=== PATIENT | female | born 1990 | race Caucasian/White ===

== ENCOUNTER 2016-08-28 16:46 | Emergency (ER) | payer OTHER ==
[2016-08-28 16:57] VITALS: BP 124/81
--- NOTE | 2016-08-28 17:02 | ER Document Report ---
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 She's had chronic right wrist pain [place] scheduled for an MRI of the wrist the end of the month. She is here because she can't tolerate the pain. Tender over the ulnar styloid. TRAVEL OUTSIDE OF THE [place] IN LAST 30 DAYS: No - Related Data Allergies/Adverse Reactions: No Known Allergies Allergy (Verified 03/23/16 11:46) Past Medical History - Past Medical History Cardiac Medical History: Denies: Hx Coronary Artery Disease, Hx Heart Attack, Hx Hypertension Pulmonary Medical History: Denies: Hx Asthma, Hx Bronchitis, Hx COPD, Hx Pneumonia Neurological Medical History: Denies: Hx Cerebrovascular Accident, Hx Seizures GI Medical History: Denies: Hx Hepatitis, Hx Hiatal Hernia, Hx Ulcer Musculoskeltal Medical History: Denies Hx Arthritis Infectious Medical History: Denies: Hx Hepatitis Past Surgical History: Denies: Hx Mastectomy, Hx Open Heart Surgery, Hx Pacemaker - Immunizations Hx Diphtheria, Pertussis, Tetanus Vaccination: Yes Physical Exam - Vital signs Vitals: Temp Pulse Resp BP Pulse Ox 98.0 F 75 16 124/81 100 08/28/16 16:56 08/28/16 16:56 08/28/16 16:56 08/28/16 16:56 08/28/16 16:56 Course - Vital Signs Vital signs: Temp Pulse Resp BP Pulse Ox 98.0 F 75 16 124/81 100 08/28/16 16:56 08/28/16 16:56 08/28/16 16:56 08/28/16 16:56 08/28/16 16:56
[2016-08-28] MEDS ORDERED: IBUPROFEN 800 MG TABLET PO ONE (17:04)
--- NOTE | 2016-08-28 18:53 | ER Document Report ---
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 She states during this workup 2 months ago she heard a pop in the right wrist and when she turned she had a very sharp pain she went to her doctor who centered to orthopedics who centered to physical therapy which she states has not helped at all TRAVEL OUTSIDE OF THE [place] IN LAST 30 DAYS: No - HPI Injury to: Wrist - Right Onset: Other - 2 months [facility]: [facility] Timing: Waxing and waning Quality of pain: Sharp, Throbbing Severity: Moderate Pain Level: 4 - Related Data Allergies/Adverse Reactions: No Known Allergies Allergy (Verified 03/23/16 11:46) Past Medical History - General Information source: Patient - Social History Smoking Status: Never Smoker Cigarette use (# per day): No Chew tobacco use (# tins/day): No Smoking Education Provided: No Frequency of alcohol use: None Drug Abuse: None Occupation: Marine Family History: Reviewed & Not Pertinent Patient has suicidal ideation: No Patient has homicidal ideation: No - Past Medical History Cardiac Medical History: Reports: None Pulmonary Medical History: Reports: None EENT Medical History: Reports: None Neurological Medical History: Reports: None Endocrine Medical History: Reports: None Renal/ Medical History: Reports: None Malignancy Medical History: Reports: None GI Medical History: Reports: None Musculoskeltal Medical History: Reports Hx Musculoskeletal Deformity, Reports Hx Musculoskeletal Trauma Skin Medical History: Reports None Psychiatric Medical History: Reports: None Traumatic Medical History: Reports: Hx Fractures - Tuft fracture left Infectious Medical History: Reports: None Past Surgical History: Reports: Hx Orthopedic Surgery - Ankle surgery for torn ligament - Immunizations Immunizations up to date: Yes Hx Diphtheria, Pertussis, Tetanus Vaccination: Yes Review of Systems - Review of Systems Constitutional: No symptoms reported EENT: No symptoms reported Cardiovascular: No symptoms reported Respiratory: No symptoms reported Gastrointestinal: No symptoms reported Genitourinary: No symptoms reported Female Genitourinary: No symptoms reported Musculoskeletal: Other - Right wrist pain worse with movement Skin: No symptoms reported Hematologic/Lymphatic: No symptoms reported Neurological/Psychological: No symptoms reported -: Yes All other systems reviewed and negative Physical Exam - Vital signs Vitals: Temp Pulse Resp BP Pulse Ox 98.0 F 75 16 124/81 100 08/28/16 16:56 08/28/16 16:56 08/28/16 16:56 08/28/16 16:56 08/28/16 16:56 Interpretation: Normal - General General appearance: Appears well, Alert - HEENT Head: Normocephalic, Atraumatic Eyes: Normal Pupils: PERRL - Respiratory Respiratory status: No respiratory distress Chest status: Nontender Breath sounds: Normal Chest palpation: Normal - Cardiovascular Rhythm: Regular Heart sounds: Normal auscultation Murmur: No - Abdominal Inspection: Normal Distension: No distension Bowel sounds: Normal Tenderness: Nontender Organomegaly: No organomegaly - Back Back: Normal, Nontender - Extremities General upper extremity: Normal color, Normal temperature General lower extremity: Normal inspection, Nontender, Normal color, Normal ROM , Normal temperature, Normal weight bearing. No: Antionette's sign Wrist: Tender, Axial load of thumb pain, Limited ROM Hand: Normal - Neurological Neuro grossly intact: Yes Cognition: Normal Orientation: AAOx4 [place]rella Coma Scale Eye Opening: Spontaneous [place] Coma Scale Verbal: Oriented [place] Coma Scale Motor: Obeys Commands [place] Coma Scale Total: 15 Speech: Normal Motor strength normal: LUE, RUE, LLE, RLE Sensory: Normal - Psychological Associated symptoms: Normal affect, Normal mood - Skin Skin Temperature: Warm Skin Moisture: Dry Skin Color: Normal Course - Re-evaluation Re-evalutation: 08/28/16 19:31 X-ray discussed with patient and written report given to patient to follow-up with her doctor. Cock-up splint applied to right wrist and patient discharged home with a prescription for hydrocodone - Vital Signs Vital signs: Temp Pulse Resp BP Pulse Ox 98.0 F 75 16 124/81 100 08/28/16 16:56 08/28/16 16:56 08/28/16 16:56 08/28/16 16:56 08/28/16 16:56 - Diagnostic Test Radiology reviewed: Image reviewed, Reports reviewed Discharge - Discharge Clinical Impression: Right wrist pain Condition: Stable Disposition: HOME, SELF-CARE Additional Instructions: He was seen today for wrist pain to the right wrist for the last 2 months. You have been scheduled at your primary care for an MRI at the end of the month your x-rays today have been negative. I have offered to narcotics and you've refused them at this time. SPLINT PRECAUTIONS: A splint has been placed. This will protect the area while healing begins. Your problem does NOT normally require a cast. It MUST, however, be held still! Keep the splint on ALL THE TIME until instructed to remove it by the doctor. As you begin to use the area, be careful. You shouldn't do anything which causes discomfort -- you may disturb the injury even with the splint in place. After the initial period of rest and elevation, if splint does not prevent pain when you move, come back. You may require placement of a different splint , or a cast. If there is unexpected severe pain, or numbness, discoloration, or swelling beyond the splint, you should return at once. If you feel that the splint has broken or become loose, come back. ICE & ELEVATION: Apply ice packs frequently against the painful area. Many different schedules are recommended, such as "20 minutes on, 20 minutes off" or "one hour ice, two hours rest." If you need to work, you may need to go longer between ice treatments. You should plan to have the area ice packed AT LEAST one- fourth of the time. The ice should be applied over the wrap, tape, or splint, or over a layer of cloth -- not directly against the skin. Some ice bags have a built-in cloth and can be put directly on the skin. Your injured part should be elevated as much as possible over the next 48 hours. Try to keep the injury above the level of the heart. Avoid use of the injured area. Elevation and rest will decrease the swelling. USE OF [id number] IBUPROFEN: Ibuprofen (Advil, Nuprin, Medipren, Motrin IB) is a medication for fever and pain control. In addition, it has anti- inflammatory effects which may be beneficial, especially in the treatment of injuries. It's best to take ibuprofen with food. Persons with ulcer disease or allergy to aspirin should notify their physician of this before taking ibuprofen. Ibuprofen can be given every four to six hours, for a total of four doses daily. Age Pain or fever dose Antiinflammatory dose 6-8 yr 200 mg (1 tab) 200 mg (1 tab) 9-11 yr 200 mg (1 tab) 200-400 mg (1-2 tab) 11-14 yr 200-400 mg (1-2 tab) 400 mg (2 tab) 15-adult 400 mg (2 tab) 600 mg (3 tab) ORAL NARCOTIC MEDICATION: You have been given a prescription for pain control. This medication is a narcotic. It's best taken with food, as nausea can result if taken on an empty stomach. Don't operate machinery or drive within six hours of taking this medication. Do not combine this medicine with alcohol, or with any medication which can cause sedation (such as cold tablets or sleeping pills) unless you get permission from the physician. Narcotics tend to cause constipation. If possible, drink plenty of fluids and eat a diet high in fiber and fruits. Please be aware that prescription narcotics also have the potential for abuse. People become addicted to these medications because of the general sense of wellbeing that they induce. This feeling along with a significant reduction in tension, anxiety, and aggression provides a stimulating seductive quality to these drugs. Once your pain is under control, we encourage you to discard your unused narcotics. FOLLOW-UP CARE: If you have been referred to a physician for follow-up care, call the physician s office for an appointment as you were instructed or within the next two days. If you experience worsening or a significant change in your symptoms, notify the physician immediately or return to the Emergency Department at any time for re-evaluation. Prescriptions: Hydrocodone/Acetaminophen [[place] 5-325 mg Tablet] 1 tab PO Q6HP PRN #14 tablet PRN Reason:
== END 2016-08-28 19:32 | disposition home or self-care (01) ==
LOC: ER 16:46
DX: M25.531 Pain in right wrist (principal); M79.89 Other specified soft tissue disorders; W19.XXXA Unspecified fall, initial encounter
CPT/HCPCS: 99283; L3984

== ENCOUNTER 2017-10-12 12:06 | Emergency (ER) | payer OTHER ==
[2017-10-12] MEDS ORDERED: FAMOTIDINE INJ/PF 20 MG/2 ML SDV IV ONE (12:09)
[2017-10-12] MEDS ORDERED: METHYLPREDNISOLONE INJ 125 MG/2 ML SDV IV ONE (12:09)
[2017-10-12] MEDS ORDERED: DIPHENHYDRAMINE HCL 50 MG/ML VIAL IV ONE (12:09)
--- NOTE | 2017-10-12 12:11 | ER Document Report ---
ED Allergic Reaction - General Stated Complaint: POSSIBLE ALLERGIC REACTION Time Seen by Provider: 10/12/17 12:09 Notes: 26-year-old female to the emergency department with complaint of "anaphylactic reaction". Patient received allergy shots for mold and dust today. Has been receiving allergy shots at [facility]. After receiving the shot today she went home. Began having difficulty breathing and shortness of breath. [place] tightness in her throat and had difficulty swallowing. Came here. Patient was immediately brought back. IV was established and steroids, Benadryl and Pepcid given. TRAVEL OUTSIDE OF THE [place] IN LAST 30 DAYS: No - HPI Onset: Just prior to arrival Onset/Duration: Gradual Severity: Severe Pain Level: 0 Medication Exposure: Other - Allergy shots - Related Data Allergies/Adverse Reactions: No Known Allergies Allergy (Verified 03/23/16 11:46) Past Medical History - General Information source: Patient - Social History Smoking Status: Never Smoker Cigarette use (# per day): No Frequency of alcohol use: None Drug Abuse: None Lives with: Family Family History: Reviewed & Not Pertinent - Medical History Medical History: Negative - Past Medical History Cardiac Medical History: Denies: Hx Coronary Artery Disease, Hx Heart Attack, Hx Hypertension Pulmonary Medical History: Denies: Hx Asthma, Hx Bronchitis, Hx COPD, Hx Pneumonia Neurological Medical History: Denies: Hx Cerebrovascular Accident, Hx Seizures GI Medical History: Denies: Hx Hepatitis, Hx Hiatal Hernia, Hx Ulcer Musculoskeltal Medical History: Denies Hx Arthritis, Reports Hx Musculoskeletal Deformity, Reports Hx Musculoskeletal Trauma Traumatic Medical History: Reports: Hx Fractures - Tuft fracture left Infectious Medical History: Denies: Hx Hepatitis Past Surgical History: Reports: Hx Orthopedic Surgery - Ankle surgery for torn ligament. Denies: Hx Mastectomy, Hx Open Heart Surgery, Hx Pacemaker - Immunizations Immunizations up to date: Yes Hx Diphtheria, Pertussis, Tetanus Vaccination: Yes Review of Systems - Review of Systems Constitutional: denies: Fever, Malaise, Weakness EENT: Throat pain, Difficulty swallowing, Throat swelling. denies: Eye pain, Eye discharge, Blurred vision, Tearing, Double vision, Ear pain, Mouth pain Cardiovascular: Heart racing. denies: Chest pain, Palpitations Respiratory: Hurts to breathe, Short of breath, Wheezing. denies: Cough Gastrointestinal: denies: Abdominal pain, Diarrhea, Nausea, Vomiting Genitourinary: denies: Burning, Dysuria, Discharge, Flank pain Musculoskeletal: denies: Back pain, Joint pain, Joint swelling, Muscle pain Skin: Rash. denies: Lesions, Lumps Hematologic/Lymphatic: denies: Anemia, Blood clots, Easy bleeding, Easy bruising Neurological/Psychological: denies: Sensory change, Weakness, Numbness Physical Exam - Vital signs Vitals: Resp BP Pulse Ox 26 H 136/88 H 100 10/12/17 12:11 10/12/17 12:11 10/12/17 12:11 Interpretation: Normal - General General appearance: Appears well, Alert - HEENT Head: Normocephalic, Atraumatic Eyes: Normal Pupils: PERRL - Respiratory Respiratory status: No respiratory distress Chest status: Nontender Breath sounds: Normal Chest palpation: Normal - Cardiovascular Rhythm: Regular Heart sounds: Normal auscultation Murmur: No - Abdominal Inspection: Normal Distension: No distension Bowel sounds: Normal Tenderness: Nontender Organomegaly: No organomegaly - Back Back: Normal, Nontender - Extremities General upper extremity: Normal inspection, Nontender, Normal color, Normal ROM , Normal temperature General lower extremity: Normal inspection, Nontender, Normal color, Normal ROM , Normal temperature, Normal weight bearing. No: Antionette's sign - Neurological Neuro grossly intact: Yes Cognition: Normal Orientation: AAOx4 [place] Coma Scale Eye Opening: Spontaneous [place] Coma Scale Verbal: Oriented [place] Coma Scale Motor: Obeys Commands [place] Coma Scale Total: 15 Speech: Normal Motor strength normal: LUE, RUE, LLE, RLE Sensory: Normal - Psychological Associated symptoms: Normal affect, Normal mood - Skin Skin Temperature: Warm Skin Moisture: Dry Skin Color: Normal, Other - Large well noted on the triceps area of the right upper extremity Course - Re-evaluation Re-evalutation: 10/12/17 14:12 She received Solu-Medrol, Benadryl, Pepcid. Has been observed now for 2 hours. Breathing treatment also given. No stridor. No wheezing. Comfortable at this time discharging. Patient does not need epinephrine in my opinion at this point. Patient does have a rescue EpiPen. Consulted with Dr. Dr. Call at [facility]. He is aware that we did see patient in the emergency department for this condition. Will follow up with her as an outpatient. Advised that she continue with Benadryl throughout the day. Will prescribe another dose of steroid to use for the next 2 days. Will advise Zantac or Pepcid twice a day as well for the next 3 days. - Vital Signs Vital signs: Temp Pulse Resp BP Pulse Ox 22 H 146/130 H 100 10/12/17 12:35 10/12/17 12:29 10/12/17 12:29 Critical Care Note - Critical Care Note Total time excluding time spent on procedures (mins): 35 Comments: Anaphylactic reaction, consultation with specialists Discharge - Discharge Clinical Impression: Acute allergic reaction Qualifiers: Encounter type: initial encounter Qualified Code(s): T78.40XA - Allergy, unspecified, initial encounter Condition: Good Disposition: HOME, SELF-CARE Instructions: Acute Allergic Reaction ([facility]) Additional Instructions: You will probably need to take 50 mg of Benadryl every 8 hours for the next 2 days. Please take 2 more days of prednisone as prescribed. Please begin Zantac twice a day for the next 2 days. Please notify your medical care evaluation specialist/ provider about your visit to the ER today. In the event that you begin to have difficulty swallowing, difficulty breathing or any other concerns please return immediately to the nearest emergency department or call 911. Do not hesitate to use the EpiPen if you are having difficulty breathing. If you do give yourself a shot of epinephrine call 911 immediately. Prescriptions: Diphenhydramine HCl [Benadryl 25 mg Capsule] 50 mg PO TID 2 Days #6 capsule Prednisone [Deltasone 20 mg Tablet] 3 tab PO DAILY 2 Days #6 tablet Ranitidine HCl [Zantac] 150 mg PO BID 3 Days #6 tablet
[2017-10-12] MEDS ORDERED: ALBUTEROL SULFATE 0.083% NEB 2.5 MG/3 ML AMPUL NEB ONE ×2 (12:13→12:14)
[2017-10-12 14:46] VITALS: BP 111/73
== END 2017-10-12 14:46 | disposition home or self-care (01) ==
LOC: ER 12:06
DX: T78.40XA Allergy, unspecified, initial encounter (principal); R06.02 Shortness of breath; R13.10 Dysphagia, unspecified; X58.XXXA Exposure to other specified factors, initial encounter; Y92.810 Car as the place of occurrence of the external cause
CPT/HCPCS: 94640; 96374; 96375; 99284; J1200; J2930; S0028

== ENCOUNTER 2017-10-17 19:17 | Emergency (ER) | payer OTHER ==
[2017-10-17 19:50] VITALS: BP 128/86
--- NOTE | 2017-10-17 20:05 | EKG REPORT ---
SEVERITY:- NORMAL ECG - SINUS RHYTHM : Confirmed by: Juan Francisco Amato MD 17-Oct-2017 20:04:47
== END 2017-10-17 20:36 | disposition left against medical advice (07) ==
LOC: ER 19:17
DX: Z53.21 Procedure and treatment not carried out due to patient leaving prior to being seen by health care provider (principal); R07.9 Chest pain, unspecified
CPT/HCPCS: 93005; 93010